=== PATIENT | female | born 1985 | race Caucasian/White ===

== ENCOUNTER 2017-09-02 16:03 | Emergency (ER) | payer BC ==
[2017-09-02] MEDS ORDERED: SODIUM CHLORIDE 0.9% 1,000 ML IV STA (19:41)
--- NOTE | 2017-09-02 19:44 | ED ---
Female Urogenital HPI - General Chief complaint: Urogenital Stated complaint: Spotting/12 weeks Time Seen by Provider: 09/02/17 19:34 Source: patient, RN notes reviewed Mode of arrival: ambulatory Limitations: no limitations - History of Present Illness Initial comments: This is a 31-year-old female who presents to the emergency department with chief complaint of vaginal bleeding. Patient states that she is currently 12 weeks . She states that yesterday morning she developed vaginal bleeding. She states that it slowly decreased in amount throughout the day. Patient states that she had some light spotting this morning but is no longer having vaginal bleeding. She states that she is visiting the area from [place]. She contacted her doctor who advised that she come to the emergency department for evaluation and to possibly receive Rhogam as she is O-. Patient states she has also experienced some lower abdominal cramping. She denies any fevers or chills, chest pain or shortness of breath, nausea or vomiting, diarrhea or constipation, dysuria or hematuria, dizziness or headache. - Related Data Home Medications Medication Instructions Recorded Confirmed Pnv,Calcium 72/Iron/Folic Acid 1 tab PO DAILY 09/02/17 09/02/17 [ Plus Tablet] Previous Rx's Medication Instructions Recorded Cephalexin [Keflex] 500 mg PO Q12HR #14 cap 09/02/17 Allergies Allergy/AdvReac Type Severity Reaction Status Date / Time No Known Allergies Allergy Verified 09/02/17 19:42 Review of Systems ROS Statement: Those systems with pertinent positive or pertinent negative responses have been documented in the HPI. ROS Other: All systems not noted in ROS Statement are negative. Past Medical History Past Medical History: No Reported History History of Any Multi-Drug Resistant Organisms: None Reported Past Surgical History: Section Past Psychological History: No Psychological Hx Reported Smoking Status: Never smoker Past Alcohol Use History: None Reported Past Drug Use History: None Reported General Exam - General Exam Comments Initial Comments: General: Awake and alert, well-developed; in no apparent distress. HEENT: Head atraumatic, normocephalic. Pupils are equal, round and reactive to light. Extraocular movements intact. Oropharynx moist without erythema or exudate. Neck: Supple. Normal ROM. Cardiovascular: Regular rate and rhythm. No murmurs, rubs or gallops. Chest symmetrical. Respiratory: Lungs clear to auscultation bilaterally. No wheezes, rales or rhonchi. Normal respiratory effort with no use of accessory muscles. Abdomen: Soft, non-tender, non-distended. No rigidity, rebound or guarding. Normal bowel sounds in all 4 quadrants. Musculoskeletal: Normal ROM, no tenderness bilateral upper and lower extremities. Skin: [place], warm and dry without rashes or lesions. Neurological: Alert and oriented x3. CN II-XII grossly intact. Speech is fluent and answers are appropriate. No focal neuro deficits. Psychiatric: Normal mood and affect. No overt signs of depression or anxiety noted. Limitations: no limitations Course Vital Signs 09/02/17 09/02/17 18:01 20:38 Temperature 98.7 F 98.2 F Pulse Rate 89 74 Respiratory 18 16 Rate Blood Pressure 130/76 109/55 O2 Sat by Pulse 99 100 Oximetry Medical Decision Making - Medical Decision Making This is a 31-year-old female, currently 12 weeks , who presents to the emergency department with chief complaint of vaginal bleeding. Patient states that she had some vaginal bleeding yesterday but that this has dissipated. She also admits to lower abdominal cramping. An ultrasound was obtained and revealed no complicating processes. Viable IUP at 12 weeks 6 days with wnl heart rate. CBC and CMP were unremarkable. UA did reveal evidence of infection with bacteria, leukocyte esterase and white blood cells. Patient denies any urinary symptoms. Patient will be treated for asymptomatic bacteriuria with Keflex. Given first dose in the emergency department. Patient is O-. She was given a dose of Rhogam. Vital signs have been stable and patient is in no acute distress. Recommended following up with her COOKER SODA when she gets back home. She is in agreement with plan and voices understanding. She will be discharged home at this time. All questions were answered. - Lab Data Result diagrams: 09/02/17 19:30 09/02/17 19:30 Lab Results 09/02/17 09/02/17 09/02/17 Range/Units 19:30 19:30 19:30 WBC 11.1 H (3.8-10.6) k/uL RBC 4.42 (3.80-5.40) m/uL Hgb 13.7 (11.4-16.0) gm/dL Hct 39.8 (34.0-46.0) % MCV 90.0 (80.0-100.0) fL MCH 30.9 (25.0-35.0) pg MCHC 34.3 (31.0-37.0) g/dL RDW 13.3 (11.5-15.5) % Plt Count 166 (150-450) k/uL Neutrophils % 77 % Lymphocytes % 16 % Monocytes % 5 % Eosinophils % 1 % Basophils % 0 % Neutrophils # 8.5 H (1.3-7.7) k/uL Lymphocytes # 1.8 (1.0-4.8) k/uL Monocytes # 0.6 (0-1.0) k/uL Eosinophils # 0.1 (0-0.7) k/uL Basophils # 0.0 (0-0.2) k/uL Sodium 139 (137-145) mmol/L Potassium 3.6 (3.5-5.1) mmol/L Chloride 100 (98-107) mmol/L Carbon Dioxide 26 (22-30) mmol/L Anion Gap 13 mmol/L BUN 7 (7-17) mg/dL Creatinine 0.59 (0.52-1.04) mg/dL Est GFR (CKD-EPI)AfAm >90 (>60 ml/min/1.73 sqM) Est GFR (CKD-EPI)NonAf >90 (>60 ml/min/1.73 sqM) Glucose 81 (74-99) mg/dL Calcium 9.6 (8.4-10.2) mg/dL Total Bilirubin 0.5 (0.2-1.3) mg/dL AST 22 (14-36) U/L ALT 30 (9-52) U/L Alkaline Phosphatase 71 (38-126) U/L Total Protein 7.1 (6.3-8.2) g/dL Albumin 4.2 (3.5-5.0) g/dL Urine Color Yellow Urine Appearance Cloudy H (Clear) Urine pH 6.5 (5.0-8.0) Ur Specific [place] 1.015 (1.001-1.035) Urine Protein Negative (Negative) Urine Glucose (UA) Negative (Negative) Urine Ketones Negative (Negative) Urine Blood Trace H (Negative) Urine Nitrite Negative (Negative) Urine Bilirubin Negative (Negative) Urine Urobilinogen 3.0 (<2.0) mg/dL Ur Leukocyte Esterase Large H (Negative) Urine RBC 5 (0-5) /hpf Urine WBC 40 H (0-5) /hpf Ur Squamous Epith Cells 1 (0-4) /hpf Urine Bacteria Occasional H (None) /hpf Urine Mucus Rare H (None) /hpf Urine Yeast (Budding) Few H (None) /hpf - Radiology Data Radiology results: report reviewed Obstetrical ultrasound impression: Viable IUP 12 weeks 6 days, heart rate 152 bpm. No complicating process seen. Amniotic fluid is adequate. Disposition Clinical Impression: First-trimester bleeding, Asymptomatic bacteriuria during Disposition: HOME SELF-CARE Condition: Good Instructions: First Trimester Vaginal Bleed (ED), Urinary Tract Infection in (ED) Additional Instructions: Please take medications as prescribed. Please follow-up with your COOKER SODA within 1-2 days. Please follow up with primary care provider within 1-2 days. Return to emergency department if symptoms should worsen or any concerns arise. Prescriptions: Cephalexin [Keflex] 500 mg PO Q12HR #14 cap Is patient prescribed a controlled substance at d/c from ED?: No Referrals: None,Stated [Primary Care Provider] - 1-2 days Time of Disposition: 21:00
[2017-09-02 19:59] LABS: Basophils % (A) 0 %; Eosinophils # (A) 0.1 k/uL (0-0.7); Eosinophils % (A) 1 %; HCT 39.8 % (34.0-46.0); HGB 13.7 gm/dL (11.4-16.0); Lymphocytes # (A) 1.8 k/uL (1.0-4.8); Lymphocytes % (A) 16 %; MCH 30.9 pg (25.0-35.0); MCHC 34.3 g/dL (31.0-37.0); Mean Platelet Volume 7.8; Monocytes # (A) 0.6 k/uL (0-1.0); Monocytes % (A) 5 %; Neutrophils # (A) 8.5 k/uL (1.3-7.7); Neutrophils % (A) 77 %; Platelet Count 166 k/uL (150-450); RBC 4.42 m/uL (3.80-5.40); RDW 13.3 % (11.5-15.5); WBC 11.1 k/uL (3.8-10.6)
[2017-09-02 20:06] LABS: Appearance,Urine Cloudy (Clear); Bacteria,Urine Occasional /hpf; Bilirubin,Urine Negative (Negative); Blood,Urine Trace (Negative); Budding Yeast,Urine Few /hpf; Color,Urine Yellow; Glucose,Urine (UA) Negative (Negative); Ketones,Urine Negative (Negative); Leukocyte Esterase,Urine Large (Negative); Mucus,Urine Rare /hpf; Nitrite,Urine Negative (Negative); PH, Urine 6.5 (5.0-8.0); Protein,Urine Negative (Negative); RBC,Urine 5 /hpf (0-5); Specific Gravity,Urine 1.015 (1.001-1.035); Squamous Epithelial Cell,Urine 1 /hpf (0-4); WBC,Urine 40 /hpf (0-5)
[2017-09-02 20:11] LABS: ALT 30 U/L (9-52); AST 22 U/L (14-36); Albumin 4.2 g/dL (3.5-5.0); Alkaline Phosphatase 71 U/L (38-126); Anion Gap 13 mmol/L; Blood Urea Nitrogen 7 mg/dL (7-17); Calcium 9.6 mg/dL (8.4-10.2); Carbon Dioxide 26 mmol/L (22-30); Chloride 100 mmol/L (98-107); Glucose 81 mg/dL (74-99); Potassium 3.6 mmol/L (3.5-5.1); Sodium 139 mmol/L (137-145); Total Bilirubin 0.5 mg/dL (0.2-1.3); Total Protein 7.1 g/dL (6.3-8.2)
--- NOTE | 2017-09-02 20:33 | US ---
EXAMINATION TYPE: Transabdominal DATE OF EXAM: 05/28/17 COMPARISON: NONE CLINICAL HISTORY: vaginal bleed; cramping. Spotting EXAM PERFORMED: Transabdominal (TA) EXAM MEASUREMENTS: GESTATIONAL AGE / DATING Physician Established: (12 weeks/1 days) EDC: 03/16/2018 Dates by LMP: (12 weeks/1 days) EDC: 03/16/2018 Dates by First Scan: No previous this is first scan Dates by Current Scan for: (12 weeks/6 days) EDC: 03/11/2018 MATERNAL ANATOMY Uterus: 12.2 x 8.7 x 9.7 cm Post CDS / Adnexa: wnl Presence of free fluid: no Presence of corpus luteal cyst: no Presence of subchorionic bleed: no GESTATION / SURVEY CRL: 6.5 cm (12 weeks/6 days) Heart Rate: 152 bpm Rhythm: Normal IUP: Viable IUP Beta HcG (if available): Not available at this time Viable IUP 12w 6d JOHANN 03/11/2018 HR 152 BPM IMPRESSION: No complicating process seen. Amniotic fluid is adequate.
[2017-09-02 20:40] VITALS: PULSE 74; TEMP 98.2
[2017-09-02] MEDS ORDERED: CEPHALEXIN 500 MG CAP PO STA (20:48)
[2017-09-02] MEDS ORDERED: Rhogam IMMUNE GLOBULIN 1,500 UNIT/1 ML IM ONE (20:58)
[2017-09-02 22:23] VITALS: BP 109/54; RESP 15
== END 2017-09-02 22:30 | disposition home or self-care (01) ==
LOC: EC 16:03
DX: O20.9 Hemorrhage in early pregnancy, unspecified (principal); O99.89 Other specified diseases and conditions complicating pregnancy, childbirth and the puerperium; R82.71 Bacteriuria; Z3A.12 12 weeks gestation of pregnancy
CPT/HCPCS: 99284; 96360; 96372; 36415; 86900; 86901; 80053; 85025; 86850; 81001; 84702; 76801; J2791

== ENCOUNTER 2017-09-04 09:57 | Emergency (ER) | payer BC ==
--- NOTE | 2017-09-04 10:30 | ED ---
General Adult HPI - General Chief complaint: Vaginal Bleeding Stated complaint: poss miscarrage Time Seen by Provider: 09/04/17 10:17 Source: patient, family, RN notes reviewed Mode of arrival: ambulatory Limitations: no limitations - History of Present Illness Initial comments: Patient is a pleasant 31-year-old female presenting to the emergency Department with vaginal bleeding. Patient is traveling from [place]. Patient is known 12 weeks . Patient did have some bleeding 3 days ago. Patient did come to the emergency department 2 days ago and had ultrasound done and rhogram given. Patient states this morning just prior to arrival she had a large amount of bleeding. Patient did pass something and is unclear if it was a clot or not. Patient states bleeding seems to have subsided. Patient denies ever having any cramping. Patient is 3 para 2. Patient did have some bleeding during Her first however did go to full-term. - Related Data Home Medications Medication Instructions Recorded Confirmed Pnv,Calcium 72/Iron/Folic Acid 1 tab PO DAILY 09/02/17 09/04/17 [ Plus Tablet] Previous Rx's Medication Instructions Recorded Cephalexin [Keflex] 500 mg PO Q12HR #14 cap 09/02/17 Allergies Allergy/AdvReac Type Severity Reaction Status Date / Time No Known Allergies Allergy Verified 09/04/17 10:32 Review of Systems ROS Statement: Those systems with pertinent positive or pertinent negative responses have been documented in the HPI. ROS Other: All systems not noted in ROS Statement are negative. Constitutional: Denies: fever Eyes: Denies: eye pain ENT: Denies: ear pain Respiratory: Denies: cough Cardiovascular: Denies: chest pain Endocrine: Denies: fatigue Gastrointestinal: Denies: abdominal pain Genitourinary: Reports: other (Vaginal bleeding). Denies: dysuria Musculoskeletal: Denies: back pain Skin: Denies: rash Neurological: Denies: weakness Past Medical History Past Medical History: No Reported History History of Any Multi-Drug Resistant Organisms: None Reported Past Surgical History: Section Past Psychological History: No Psychological Hx Reported Smoking Status: Never smoker Past Alcohol Use History: None Reported Past Drug Use History: None Reported General Exam Limitations: no limitations General appearance: alert, in no apparent distress Head exam: Present: atraumatic Eye exam: Present: normal appearance, PERRL ENT exam: Present: normal oropharynx Neck exam: Present: normal inspection Respiratory exam: Present: normal lung sounds bilaterally Cardiovascular Exam: Present: regular rate GI/Abdominal exam: Present: soft. Absent: tenderness External exam: Present: normal external exam (Nurse Mari is present) Speculum exam: Present: vaginal bleeding (Moderate sized clot) By manual exam: Present: uterine enlargement, other (Mild diffuse tenderness) Neurological exam: Present: alert Psychiatric exam: Present: anxious Skin exam: Present: normal color Course Vital Signs 09/04/17 10:08 Temperature 98.6 F Pulse Rate 108 H Respiratory 18 Rate Blood Pressure 139/91 O2 Sat by Pulse 98 Oximetry Medical Decision Making - Medical Decision Making Beta hCG machine has been down and lab is still pending. Patient reevaluated and resting comfortably in bed. Patient is made aware of this. Patient updated on ultrasound reports and risk. - Lab Data Result diagrams: 09/04/17 10:28 Lab Results 09/04/17 Range/Units 10:28 WBC 10.4 (3.8-10.6) k/uL RBC 4.24 (3.80-5.40) m/uL Hgb 13.0 (11.4-16.0) gm/dL Hct 37.9 (34.0-46.0) % MCV 89.3 (80.0-100.0) fL MCH 30.8 (25.0-35.0) pg MCHC 34.4 (31.0-37.0) g/dL RDW 13.4 (11.5-15.5) % Plt Count 160 (150-450) k/uL Neutrophils % 79 % Lymphocytes % 14 % Monocytes % 5 % Eosinophils % 1 % Basophils % 0 % Neutrophils # 8.2 H (1.3-7.7) k/uL Lymphocytes # 1.5 (1.0-4.8) k/uL Monocytes # 0.5 (0-1.0) k/uL Eosinophils # 0.1 (0-0.7) k/uL Basophils # 0.0 (0-0.2) k/uL - Radiology Data Radiology results: report reviewed (Pelvic ultrasound shows single live intrauterine gestation redemonstrated. Possible new small tiny subchorionic hemorrhage.) Disposition Clinical Impression: Threatened Disposition: HOME SELF-CARE Condition: Stable Instructions: Threatened Miscarriage (ED) Additional Instructions: Please follow-up with SENIOR INSPECTOR in the next couple days for recheck. Local SENIOR INSPECTOR number will be provided. Please call your regular SENIOR INSPECTOR as well. Return for uncontrolled bleeding, pain, fevers, worsening or changing symptoms or other concerns. Is patient prescribed a controlled substance at d/c from ED?: No Referrals: Naz Mcleod MD [STAFF PHYSICIAN] - 1-2 days Time of Disposition: 12:24
[2017-09-04 10:49] LABS: Basophils % (A) 0 %; Eosinophils # (A) 0.1 k/uL (0-0.7); Eosinophils % (A) 1 %; HCT 37.9 % (34.0-46.0); Lymphocytes # (A) 1.5 k/uL (1.0-4.8); Lymphocytes % (A) 14 %; MCH 30.8 pg (25.0-35.0); MCHC 34.4 g/dL (31.0-37.0); MCV 89.3 fL (80.0-100.0); Mean Platelet Volume 7.7; Monocytes # (A) 0.5 k/uL (0-1.0); Monocytes % (A) 5 %; Neutrophils # (A) 8.2 k/uL (1.3-7.7); Neutrophils % (A) 79 %; Platelet Count 160 k/uL (150-450); RBC 4.24 m/uL (3.80-5.40); RDW 13.4 % (11.5-15.5); WBC 10.4 k/uL (3.8-10.6)
--- NOTE | 2017-09-04 11:50 | US ---
EXAMINATION TYPE: Transabdominal DATE OF EXAM: 05/28/17 COMPARISON: US 2 days ago CLINICAL HISTORY: Increased vaginal bleeding today in ; . Positive beta-hCG test EXAM PERFORMED: Transabdominal (TA) EXAM MEASUREMENTS: GESTATIONAL AGE / DATING Physician Established: (12 weeks/3 days) EDC: 03/16/2018 Dates by LMP: (12 weeks/3 days) EDC: 03/16/2018 Dates by First Scan: (13 weeks/1 day) EDC: 03/11/2018 Dates by Current Scan for: (12 weeks/5 days) EDC: 03/14/2018 MATERNAL ANATOMY Uterus: 13.7 x 7.8 x 8.1cm Right Ovary: 3.2 x 2.2 x 1.8cm Left Ovary: 3.0 x 2.1 x 1.4cm Post CDS / Adnexa: wnl Presence of free fluid: no Presence of corpus luteal cyst: possibly in left ovary Presence of subchorionic bleed: at superior uterus and retroplacental is anechoic area as possible childress bchorionic hemorrhage = 1.5 x 2.8 x 0.9cm GESTATION / SURVEY CRL: 6.3cm (12 weeks/5 days) Yolk Sac (normal less than 6mm): not seen Heart Rate: 179 bpm Rhythm: Normal IUP: Viable IUP Beta HcG (if available): not available Single, live IUP,12 weeks/5 days, EDC: 03/14/2018, HR 179bpm; Single live intrauterine gestation is redemonstrated as gestational sac and pole are seen. Yolk sac is not clearly identified similar to prior. No free fluid is seen in pelvic cul-de-sac. Along childress perior aspect of gestational sac anteriorly there is small oval hypoechoic anechoic area suspicious f or small subchorionic hemorrhage on current exam. Both ovaries are present. No suspicious extra ovarian adnexal masses are seen. IMPRESSION: Single live intrauterine gestation is redemonstrated. Possible new small to tiny subchorionic hemorrh age not clearly seen on prior study.
[2017-09-04 12:41] VITALS: BP 108/60; PULSE 75; RESP 16; TEMP 97
== END 2017-09-04 12:41 | disposition home or self-care (01) ==
LOC: EC 09:57
DX: O20.0 Threatened abortion (principal); Z3A.12 12 weeks gestation of pregnancy
CPT/HCPCS: 36415; 76801; 84702; 85025; 99284

== ENCOUNTER 2017-09-05 04:18 | Emergency (ER) | payer BC ==
[2017-09-05 04:25] VITALS: RESP 18
[2017-09-05 04:35] LABS: Basophils % (A) 0 %; Eosinophils # (A) 0.1 k/uL (0-0.7); Eosinophils % (A) 1 %; HCT 36.2 % (34.0-46.0); HGB 12.4 gm/dL (11.4-16.0); Lymphocytes # (A) 1.5 k/uL (1.0-4.8); Lymphocytes % (A) 10 %; MCH 31.2 pg (25.0-35.0); MCHC 34.2 g/dL (31.0-37.0); MCV 91.3 fL (80.0-100.0); Mean Platelet Volume 7.4; Monocytes # (A) 0.6 k/uL (0-1.0); Monocytes % (A) 4 %; Neutrophils # (A) 13.4 k/uL (1.3-7.7); Neutrophils % (A) 84 %; Platelet Count 178 k/uL (150-450); RBC 3.96 m/uL (3.80-5.40); RDW 13.6 % (11.5-15.5); WBC 15.9 k/uL (3.8-10.6)
--- NOTE | 2017-09-05 04:48 | ED ---
General Adult HPI - General Chief complaint: Vaginal Bleeding Stated complaint: issues Time Seen by Provider: 09/05/17 04:19 Source: patient, EMS, RN notes reviewed, old records reviewed Mode of arrival: EMS Limitations: no limitations - History of Present Illness Initial comments: 31 female presents with vaginal bleeding and suspected miscarriage. Patient is proximally 12 weeks . She was evaluated in the emergency department with vaginal bleeding within the past 24 hours. This is her third . She has 2 living children. She is pending emergency department with vaginal bleeding over the past several days. She was diagnosed with subchorionic hemorrhage within the past 24 hours. Her bleeding persisted and she ultimately past some tissue. Patient is having crampy abdominal pain. No upper abdominal pain. No chest pain or difficulty breathing. - Related Data Home Medications Medication Instructions Recorded Confirmed Pnv,Calcium 72/Iron/Folic Acid 1 tab PO DAILY 09/02/17 09/04/17 [ Plus Tablet] Previous Rx's Medication Instructions Recorded Cephalexin [Keflex] 500 mg PO Q12HR #14 cap 09/02/17 Allergies Allergy/AdvReac Type Severity Reaction Status Date / Time No Known Allergies Allergy Verified 09/04/17 10:32 Review of Systems ROS Statement: Those systems with pertinent positive or pertinent negative responses have been documented in the HPI. ROS Other: All systems not noted in ROS Statement are negative. Past Medical History Past Medical History: No Reported History History of Any Multi-Drug Resistant Organisms: None Reported Past Surgical History: Section Past Psychological History: No Psychological Hx Reported Smoking Status: Never smoker Past Alcohol Use History: None Reported Past Drug Use History: None Reported General Exam Limitations: no limitations General appearance: alert, in no apparent distress Head exam: Present: atraumatic, normocephalic Eye exam: Present: normal appearance, PERRL, EOMI ENT exam: Present: normal exam Neck exam: Present: normal inspection. Absent: tenderness, meningismus Respiratory exam: Present: normal lung sounds bilaterally. Absent: respiratory distress, wheezes Cardiovascular Exam: Present: regular rate, normal rhythm GI/Abdominal exam: Present: soft, tenderness (Mild suprapubic tenderness). Absent: distended External exam: Present: normal external exam. Absent: lacerations Speculum exam: Present: vaginal bleeding, other (Cervical os is open, minimal bleeding) Extremities exam: Present: normal inspection, full ROM. Absent: tenderness Neurological exam: Present: alert, oriented X3, CN II-XII intact. Absent: motor sensory deficit Psychiatric exam: Present: depressed, flat affect Skin exam: Present: warm, dry, intact. Absent: cyanosis, diaphoretic Course Vital Signs 09/05/17 04:19 Temperature 98.1 F Pulse Rate 75 Respiratory 18 Rate Blood Pressure 113/54 O2 Sat by Pulse 100 Oximetry - Reevaluation(s) Reevaluation #1: 09/05/17 06:12 On reevaluation, patient is feeling somewhat better, pain improved. She is having some vaginal bleeding but no significant hemorrhage. Medical Decision Making - Medical Decision Making 31-year-old female with completed miscarriage. tissue is sent for pathology. Hemoglobin is slightly down trending at 12.4 from 13 but stable. Patient's is given Auralgan and she is Rh-. She will return with worsening or changing symptoms. - Lab Data Result diagrams: 09/05/17 04:19 09/05/17 04:19 Lab Results 09/05/17 09/05/17 09/05/17 Range/Units 04:19 04:19 04:19 WBC 15.9 H (3.8-10.6) k/uL RBC 3.96 (3.80-5.40) m/uL Hgb 12.4 (11.4-16.0) gm/dL Hct 36.2 (34.0-46.0) % MCV 91.3 (80.0-100.0) fL MCH 31.2 (25.0-35.0) pg MCHC 34.2 (31.0-37.0) g/dL RDW 13.6 (11.5-15.5) % Plt Count 178 (150-450) k/uL Neutrophils % 84 % Lymphocytes % 10 % Monocytes % 4 % Eosinophils % 1 % Basophils % 0 % Neutrophils # 13.4 H (1.3-7.7) k/uL Lymphocytes # 1.5 (1.0-4.8) k/uL Monocytes # 0.6 (0-1.0) k/uL Eosinophils # 0.1 (0-0.7) k/uL Basophils # 0.0 (0-0.2) k/uL Sodium 134 L (137-145) mmol/L Potassium 3.8 (3.5-5.1) mmol/L Chloride 104 (98-107) mmol/L Carbon Dioxide 20 L (22-30) mmol/L Anion Gap 10 mmol/L BUN 7 (7-17) mg/dL Creatinine 0.50 L (0.52-1.04) mg/dL Est GFR (CKD-EPI)AfAm >90 (>60 ml/min/1.73 sqM) Est GFR (CKD-EPI)NonAf >90 (>60 ml/min/1.73 sqM) Glucose 137 H (74-99) mg/dL Calcium 9.1 (8.4-10.2) mg/dL Total Bilirubin 0.6 (0.2-1.3) mg/dL AST 22 (14-36) U/L ALT 27 (9-52) U/L Alkaline Phosphatase 55 (38-126) U/L Total Protein 6.3 (6.3-8.2) g/dL Albumin 3.5 (3.5-5.0) g/dL Blood Type O Negative Blood Type Recheck No Antibody Screen POSITIVE Direct Antiglob Test Negative Spec Expiration Date 09/08/2017 - 231 Disposition Clinical Impression: Complete miscarriage Disposition: HOME SELF-CARE Condition: Good Instructions: Miscarriage (ED) Additional Instructions: Return to emergency department with increased vaginal bleeding, or worsening symptoms. Is patient prescribed a controlled substance at d/c from ED?: No Referrals: None,Stated [Primary Care Provider] - 1-2 days Eitan Rao MD [STAFF PHYSICIAN] - 1-2 days Time of Disposition: 06:13
[2017-09-05] MEDS ORDERED: Rhogam IMMUNE GLOBULIN 1,500 UNIT/1 ML IM ONE (04:49)
[2017-09-05] MEDS ORDERED: KETOROLAC 30 MG/ML 1 ML VIAL IVP STA (04:51)
[2017-09-05 05:06] LABS: ALT 27 U/L (9-52); AST 22 U/L (14-36); Albumin 3.5 g/dL (3.5-5.0); Alkaline Phosphatase 55 U/L (38-126); Anion Gap 10 mmol/L; Blood Urea Nitrogen 7 mg/dL (7-17); Calcium 9.1 mg/dL (8.4-10.2); Carbon Dioxide 20 mmol/L (22-30); Chloride 104 mmol/L (98-107); Glucose 137 mg/dL (74-99); Potassium 3.8 mmol/L (3.5-5.1); Sodium 134 mmol/L (137-145); Total Bilirubin 0.6 mg/dL (0.2-1.3); Total Protein 6.3 g/dL (6.3-8.2)
[2017-09-05 05:08] LABS: INR 1.1 (<1.2); Prothrombin Time 10.7 sec (9.0-12.0)
[2017-09-05 06:39] LABS: Partial Thromboplastin Time 21.7 sec (22.0-30.0)
[2017-09-05 07:18] VITALS: BP 103/71; PULSE 81; TEMP 98
[2017-09-05 07:21] LABS: HCG,Quantitative Serum 66960.9 mIU/mL
== END 2017-09-05 07:38 | disposition home or self-care (01) ==
LOC: EC 04:18
DX: O03.9 Complete or unspecified spontaneous abortion without complication (principal); Z3A.12 12 weeks gestation of pregnancy
CPT/HCPCS: 99285; 96374; 96372; 36415; 86900; 86901; 80053; 85025; 85610; 85730; 86850; 86870; 86880; 84702; J2791; J1885